=== PATIENT | male | born 1965 | race African-American/Black ===

== ENCOUNTER 2017-09-03 09:48 | Inpatient (IN) | payer OTHER ==
[~2017-09-03] VITALS: Ht 167.6 cm; Wt 70.3 kg
--- NOTE | 2017-09-03 09:58 | NUR ---
AAOX3, BIB [employer] IN CUSTODY FOR OTB C/O R 2ND TOE PAIN X 1 MONTH, +GANGRENE. RR IS EVEN AND UNLABORED WITH NAD NOTED. SKIN IS WARM AND DRY. CMS WNL. DR BROWNING AT BS FOR EVAL.
--- NOTE | 2017-09-03 10:06 | NUR ---
XRAY IN PROGRESS AT BS
[2017-09-03 10:39] LABS: CALCIUM, SERUM 8.5 mg/dL (8.5-10.1); CREATININE 0.9 mg/dL (0.6-1.3)
[2017-09-03 10:59] LABS: HEMATOCRIT 24 % (39-51); HEMOGLOBIN 7.6 g/dL (13.5-17.5); MEAN CORPUSCULAR VOLUME 71 fL (80-96); RED BLOOD CELL COUNT(AUTO) 3.38 MIL/uL (4.5-6.0); WHITE BLOOD COUNT (AUTO) 10.3 K/uL (4.3-11.0)
[2017-09-03 11:00] LABS: BASOPHILS % (AUTO) 0.4 % (0.0-2.0); EOSINOPHILS % (AUTO) 0.2 % (0.0-6.0); MEAN CORPUSCULAR HEMOGLOBIN 22 PG (26.0-33.0); MEAN CORPUSCULAR HGB CONC 32 g/dl (31.0-36.0); MONOCYTES % (AUTO) 9.1 % (2.0-12.0); NEUTROPHILS % (AUTO) 66.3 % (43.0-81.0); PLATELET COUNT (AUTO) 504 /CMM (150-450); RDW COEFFICIENT OF VARIATION 19.6 (11.5-15.0)
--- NOTE | 2017-09-03 11:16 | NUR ---
REPORT GIVEN TO NICKY YE FOR LEAH MS [facility]
--- NOTE | 2017-09-03 11:27 | NUR ---
PAGED [facility].
[2017-09-03] MEDS ORDERED: PIPERACILLIN /TAZOBACTAM 3.375 G in IV D5W 50 ML IV ONE (11:30)
[2017-09-03] MEDS ORDERED: POTASSIUM CHLORIDE 20 MEQ TAB.PRT.SR PO ONE ×2 (11:30→11:37)
[2017-09-03] MEDS ORDERED: VANCOMYCIN 1 GM in IV D5W 250 ML IV ONE (11:30)
--- NOTE | 2017-09-03 12:52 | NUR ---
RN MS INITIAL NOTES RECEIVED REPORT AND PT FROM ER VIA NELLY, PT RESTING IN BED NO ACUTE DISTRESS OR SOB, STATED NO PAIN AT THIS TIME, WOUND PICTURES TAKEN AND PLACED IN CHART, ID PLACED, ON RA SAT ABOVE 97%, RT AC 20G IV NO INFILTRATION NOTED, ADMISSION PACKET COMPLETED. A&O X4 GERMAN SPEAKING, NOT IN POLICE CUSTODY AT THIS TIME, ALL SAFETY MEASURES INITIATED, BP 151/105, HR 74, TEMP 97.6, O2 99% PAIN 0/10, RESP 18 WILL CONTINUE TO MONITOR.
[2017-09-03 13:22] LABS: LYMPHOCYTES % (MANUAL) 24 % (16-48); MONOCYTES % (MANUAL) 3 % (0-11.0); NEUTROPHILS % (MANUAL) 73 (42-76)
[2017-09-03] MEDS ORDERED: ZOLPIDEM TARTRATE 5 MG TABLET PO PRN (13:30)
[2017-09-03] MEDS ORDERED: Z GUARD REMEDY 2 OZ OINT TP PRN (13:30)
[2017-09-03] MEDS ORDERED: MAGNESIUM HYDROXIDE 30 ML UDC PO PRN (13:30)
[2017-09-03] MEDS ORDERED: ACETAMINOPHEN 325 MG TABLET PO PRN (13:30)
[2017-09-03] MEDS ORDERED: ONDANSETRON HCL/PF 4 MG/2 ML VIAL IVP PRN (13:30)
[2017-09-03] MEDS ORDERED: FEE PK DOSING 1 MIN EA MC ONE (13:36)
[2017-09-03] MEDS: ENOXAPARIN SODIUM 40 MG/0.4 ML DISP.SYRIN SQ SCH (15:20)
[2017-09-03 16:00] VITALS: BP 156/90
[2017-09-03] MEDS: PIPERACILLIN /TAZOBACTAM 3.375 G in IV D5W 50 ML IV SCH (17:13)
[2017-09-03 17:26] LABS: IRON, SERUM 31 ug/dl (50-175); TOTAL IRON BINDING CAPACITY 243 ug/dl (250-450)
--- NOTE | 2017-09-03 18:39 | NUR ---
RN MS ENDING NOTES PT RESTING IN BED WITH NO ACUTE CHANGES NOTED. ALL NEEDS MET, ALL DUE MEDS GIVEN, PTS WOUND IS COVERED WITH KERLIX AND KEPT CLEAN UNTIL WOUND CONSULT, IV SITE INTACT AND PATENT, NO ACUTE CHANGES NOTED, WILL ENDORSE TO PM NURSE.
--- NOTE | 2017-09-03 19:20 | NUR ---
RN MS INITIAL NOTES, PATIENT IN BED AWAKE ALERT AND ORIENTED, ABLE TO COMMUNICATE NEEDS AND CONCERNS, BREATHING EVEN AND UNLABORED, NO ACUTE DISTRESS/SOB NOTES AT THIS TIME, IV SITE IN RIGHT AC PATENT AND INTACT, ALL NEEDS MET, WOUND IS COVERED WITH KERLIX AND KEPT CLEAN UNTIL WOUND CONSULT, WILL CONTINUE TO MONITOR CLOSELY.
[2017-09-03 20:00] VITALS: BP 124/56
[2017-09-03] MEDS: VANCOMYCIN 1 GM in IV D5W 250 ML IV SCH (20:34)
[2017-09-04] MEDS ORDERED: PIPERACILLIN /TAZOBACTAM 3.375 G VIAL IV ONE ×2 (00:09→04:53)
[2017-09-04] MEDS: PIPERACILLIN /TAZOBACTAM 3.375 G in IV D5W 50 ML IV SCH ×5 (00:11→23:42)
[2017-09-04] MEDS ORDERED: VANCOMYCIN 1 GM VIAL ONE (04:35)
[2017-09-04] MEDS: VANCOMYCIN 1 GM in IV D5W 250 ML IV SCH ×3 (04:52→20:20)
[2017-09-04] MEDS: HYDROCODONE/APAP 5/325MG 1 EACH TABLET PO PRN (05:05)
[2017-09-04 05:49] VITALS: BP 137/80
[2017-09-04 06:25] LABS: BASOPHILS % (AUTO) 0.1 % (0.0-2.0); EOSINOPHILS % (AUTO) 1.1 % (0.0-6.0); HEMATOCRIT 27 % (39-51); HEMOGLOBIN 8.7 g/dL (13.5-17.5); LYMPHOCYTES % (AUTO) 33.8 % (20.0-44.0); MEAN CORPUSCULAR HEMOGLOBIN 23 PG (26.0-33.0); MEAN CORPUSCULAR HGB CONC 33 g/dl (31.0-36.0); MEAN CORPUSCULAR VOLUME 71 fL (80-96); MONOCYTES # (AUTO) 0.8 /CMM (0.1-1.30); MONOCYTES % (AUTO) 9.1 % (2.0-12.0); NEUTROPHILS % (AUTO) 55.9 % (43.0-81.0); PLATELET COUNT (AUTO) 565 /CMM (150-450); RED BLOOD CELL COUNT(AUTO) 3.76 MIL/uL (4.5-6.0); WHITE BLOOD COUNT (AUTO) 8.9 K/uL (4.3-11.0)
[2017-09-04 06:43] LABS: CALCIUM, SERUM 7.9 mg/dL (8.5-10.1); CREATININE 0.9 mg/dL (0.6-1.3); MAGNESIUM 1.6 mg/dL (1.8-2.4); PHOSPHORUS 3.1 mg/dL (2.5-4.9); POTASSIUM 3.9 mmol/L (3.5-5.1)
--- NOTE | 2017-09-04 06:53 | NUR ---
RN MS CLOSING NOTES, PATIENT IN BED SLEEPING AT THIS TIME, BREATHING EVEN AND UNLABORED, NO ACUTE DISTRESS/SOB NOTES AT THIS TIME, IV SITE IN RIGHT AC PATENT AND INTACT, ALL NEEDS MET, WOUND IS COVERED WITH KERLIX, NO SIGNIFICANT CHANGE OF CONDITION THROUGHOUT THE NIGHT, WILL ENDORSE CONTINUITY OF CARE TO ONCOMING NURSE.
--- NOTE | 2017-09-04 07:30 | NUR ---
TELECOM ANALYST INITIAL NOTES RECEIVED PATIENT SLEEPING IN BED, EASY TO AROUSE, AOX3, NO SIGNS OF DISTRESS ON ROOM AIR, IV R AC 20G, CLEAN AND PATENT, SL, PATIENT HAS RIGHT TOE GANGRENE, ABLE TO AMBULATE, BED IN LOW AND LOCKED POSITION, CALL LIGHT WITHIN REACH, WILL CONTINUE TO MONITOR.
[2017-09-04 08:00] VITALS: BP 139/73
[2017-09-04] MEDS: ENOXAPARIN SODIUM 40 MG/0.4 ML DISP.SYRIN SQ SCH (08:33)
--- NOTE | 2017-09-04 09:37 | NUR ---
WOUND CARE CONSULT: PT PRESENTS WITH VERY FOUL ODOR TO RT 2ND TOE NECROTIC WOUND. BED WORKER HERE TO SEE PT. DEFER TO DPM FOR WOUND TREATMENT PLAN. PT IS INDEPENDENT WITH BED MOBILITY AND IS CONTINENT. WILL SEE PRN. CURRENT ROBE SCORE IS 23.
[2017-09-04 10:48] LABS: BAND % (MANUAL) 3 % (0.0-5.0); EOSINOPHILS % (MANUAL) 1 % (0-4); LYMPHOCYTES % (MANUAL) 25 % (16-48); MONOCYTES % (MANUAL) 2 % (0-11.0); NEUTROPHILS % (MANUAL) 69 (42-76)
[2017-09-04] MEDS: Magnesium 1GM/D5W 100ML PREMIX 100 ML IV SCH ×2 (11:37→12:23)
--- NOTE | 2017-09-04 14:20 | NUR ---
Social service consult requested by MEIR Hinson for homelessness. Pt. is a 52 year old male who was admitted to [facility] for osteomyelitis. SW met with pt. bedside along with rehabilitation case coordinator Neelima Davison. Pt. is alert and oriented x 4. Pt. is very pleasant and cooperative with SW during the assessment. Pt. states he is homeless and has been homeless for the past eight months. Pt. usually stays on the streets near [employer] and [employer]. Pt. states he is from [place] and moved to [place] eight months ago. Pt. 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 Pt. arrived to [facility] in police custody due to possession of crystal methamphetamine. Pt. last used methamphetamines two days ago. Pt. states he started using methamphetamines four months ago. Pt. denies drinking alcohol. Pt. does use marijuana. Pt. smokes approximately 8 cigarettes per day. Pt. is willing to take referrals to homeless jail placements, food resources and homeless resources prior to discharge. No other social service needs are requested at this time. SW to follow up with pt. regarding referrals at time of discharge.
[2017-09-04 16:00] VITALS: BP 117/48
[2017-09-04 16:04] VITALS: BP 117/48
--- NOTE | 2017-09-04 18:37 | NUR ---
CORNER TRIMMER OPERATOR END NOTES PATIENT RESTING IN BED, NO SIGNS OF DISTRESS, ALL NEEDS ATTENDED TO, CONSENT SIGNED FOR PROCEDURE TOMORROW, NPO AT MIDNIGHT, WILL ENDORSE TO TETRYL WRINGER OPERATOR FOR CONTINUITY OF CARE.
--- NOTE | 2017-09-04 22:55 | NUR ---
RN MS INITIAL NOTES, PATIENT IN BED,SLEEPING AT THIS TIME, BUT EASILY AROUSABLE, , BREATHING EVEN AND UNLABORED, NO ACUTE DISTRESS/SOB NOTES AT THIS TIME, IV SITE IN RIGHT AC PATENT AND INTACT, PATIENT WILL HAVE PROCEDURE FOR AMPUTATION OF THE TOE WITH GANGRENE IN THE MORNING, WILL BE NPO AFTER MIDNIGHT, EXPLAIN PROCEDURE TO PATIENT AND THE NECESSITY TO BE NPO AFTER MIDNIGHT, VERBALIZED UNDERSTANDING, , WILL CONTINUE TO MONITOR CLOSELY.
[2017-09-05] MEDS: VANCOMYCIN 1 GM in IV D5W 250 ML IV SCH ×3 (03:38→20:46)
[2017-09-05 04:00] VITALS: BP 148/76
[2017-09-05] MEDS: PIPERACILLIN /TAZOBACTAM 3.375 G in IV D5W 50 ML IV SCH ×3 (05:05→18:23)
[2017-09-05 06:25] LABS: MAGNESIUM 1.9 mg/dL (1.8-2.4)
--- NOTE | 2017-09-05 06:33 | NUR ---
RN MS CLOSING NOTES, PATIENT IN BED,SLEEPING AT THIS TIME, BUT EASILY AROUSABLE, BREATHING EVEN AND UNLABORED, NO ACUTE DISTRESS/SOB NOTES AT THIS TIME, NO C/O PAIN OR DISCOMFORT AT THIS TIME, IV SITE IN RIGHT AC PATENT AND INTACT, PATIENT WILL HAVE PROCEDURE FOR AMPUTATION OF THE TOE WITH GANGRENE THIS MORNING, IS BEING NPO SINCE MIDNIGHT, NO SIGNIFICANT CHANGE IN CONDITION AT THIS TIME, BED LOCKED AND IN LOWEST POSITION, ALL NEEDS PROVIDED AND MEDS ADMINISTERED ORDERED, WILL ENDORSE CONTINUITY OF CARE TO ONCOMING NURSE. +
[2017-09-05 06:55] LABS: BASOPHILS % (AUTO) 0.6 % (0.0-2.0); EOSINOPHILS % (AUTO) 1.5 % (0.0-6.0); HEMATOCRIT 29 % (39-51); HEMOGLOBIN 9.1 g/dL (13.5-17.5); LYMPHOCYTES # (AUTO) 2.9 /CMM (0.8-4.8); LYMPHOCYTES % (AUTO) 36.8 % (20.0-44.0); MEAN CORPUSCULAR HEMOGLOBIN 23 PG (26.0-33.0); MEAN CORPUSCULAR HGB CONC 32 g/dl (31.0-36.0); MEAN CORPUSCULAR VOLUME 72 fL (80-96); MONOCYTES # (AUTO) 0.8 /CMM (0.1-1.30); MONOCYTES % (AUTO) 10.3 % (2.0-12.0); NEUTROPHILS # (AUTO) 4.1 /CMM (1.8-8.9); NEUTROPHILS % (AUTO) 50.8 % (43.0-81.0); PLATELET COUNT (AUTO) 576 /CMM (150-450); RED BLOOD CELL COUNT(AUTO) 4.01 MIL/uL (4.5-6.0); WHITE BLOOD COUNT (AUTO) 7.9 K/uL (4.3-11.0)
[2017-09-05 08:00] VITALS: BP 144/87
[2017-09-05 08:06] LABS: INR 0.95 (0.87-1.13)
[2017-09-05] MEDS: ENOXAPARIN SODIUM 40 MG/0.4 ML DISP.SYRIN SQ SCH (08:53)
[2017-09-05] MEDS ORDERED: FENTANYL PF 100MCG/2ML AMPUL ONE (12:06)
[2017-09-05] MEDS ORDERED: MIDAZOLAM HCL 2 MG/2ML VIAL ONE (12:06)
[2017-09-05] MEDS ORDERED: BUPIVACAINE 0.5 % PF 150 MG/30 ML VIAL IJ ONE (12:10)
[2017-09-05 16:00] VITALS: BP 119/72
--- NOTE | 2017-09-05 19:30 | NUR ---
RN MS INITIAL NOTES, PATIENT IN BED,ALERT AND ORIENTED ABLE TO COMMUNICATE CONCERNS AND NEEDS, BREATHING EVEN AND UNLABORED, NO ACUTE DISTRESS/SOB NOTES AT THIS TIME, IV SITE IN RIGHT AC PATENT AND INTACT, S/P RIGHT 2ND TOE AMPUTATION TODAY, BACK TO REGULAR DIET, ALL NEEDS PROVIDED AND WILL ADMINISTER ORDERED, BED LOCKED AND IN LOWEST POSITION, CALL LIGHT W/I REACH, WILL CONTINUE TO MONITOR CLOSELY.
[2017-09-05] MEDS: HYDROCODONE/APAP 5/325MG 1 EACH TABLET PO PRN (19:38)
[2017-09-05 20:00] VITALS: BP 147/82
[2017-09-06] MEDS: PIPERACILLIN /TAZOBACTAM 3.375 G in IV D5W 50 ML IV SCH ×3 (00:35→12:30)
[2017-09-06 04:00] VITALS: BP 172/74
[2017-09-06] MEDS: VANCOMYCIN 1 GM in IV D5W 250 ML IV SCH ×2 (04:17→13:00)
[2017-09-06] MEDS: HYDROCODONE/APAP 5/325MG 1 EACH TABLET PO PRN (04:57)
--- NOTE | 2017-09-06 06:24 | NUR ---
RN MS CLOSING NOTES, PATIENT IN BED SLEEPING AT THIS TIME, BREATHING EVEN AND UNLABORED, NO ACUTE DISTRESS/SOB NOTES AT THIS TIME, MEDICATION FOR PAIN ADMINISTERED EARLIER PER PATIENT REQUEST, IV SITE IN LEFT FA 22G PATENT AND INTACT, S/P RIGHT 2ND TOE AMPUTATION TODAY, ALL NEEDS PROVIDED AND WILL ADMINISTER ORDERED WELL TREATMENTS, BED LOCKED AND IN LOWEST POSITION, CALL LIGHT W/I REACH, WILL ENDORSE CONTINUITY OF CARE TOP ONCOMING NURSE.
[2017-09-06 07:12] LABS: CALCIUM, SERUM 7.9 mg/dL (8.5-10.1); POTASSIUM 4.3 mmol/L (3.5-5.1)
[2017-09-06 07:20] LABS: CREATININE 0.9 mg/dL (0.6-1.3)
[2017-09-06 08:00] VITALS: BP 153/81
[2017-09-06] MEDS: ENOXAPARIN SODIUM 40 MG/0.4 ML DISP.SYRIN SQ SCH (09:16)
[2017-09-06 12:00] VITALS: BP 133/66
--- NOTE | 2017-09-06 13:03 | NUR ---
per enedina from pharmacy, hold vanco due to trough of 21 verbal readback done
--- NOTE | 2017-09-06 15:30 | NUR ---
PATIENT DISCHARGE NOTES: PATIENT DISCHARGED HOME PER JANE BENNETT NP. NONLABORED BREATHING NOTED ON ROOM AIR. DENYING PAIN. DRESSING ON RIGHT FOOT DONE TODAY BY DR GONZALES, PATIENT REFUSED TO HAVE WOUND PICTURE TAKEN. BENEFITS AND RISKS EXPLAINED. IV LINE REMOVED PRIOR TO DISCHARGE. PATIENT GIVEN ANTIBIOTICS PRESCRIPTIONS. MEDICATION DISCUSSED WITH PATIENT WELL JANE BENNETT NP INSTRUCTIONS. 50$ GIVEN TO PATIENT PER JANE BENNETT FLORICULTURE TEACHER FOR THE PURCHASE OF ANTIBIOTICS. GIVEN TO PATIENT BY MYSELF AND WITNESSED BY GENO TOMLINSON. PATIENT GIVEN WOUND CLINIC SETUP AND JAIL INFORMATION BY CHARITO FROM [address] CONTACTED CASE MANAGEMENT REGARDING NOTIFYING [employer] REGARDING DISCHARGE. PER CASE MANAGEMENT, [employer] TO NOT BE NOTIFIED. VERBAL READBACK DONE PATIENT REQUESTED TO GO HOME TO THE INTERSECTION OF [facility] AND [facility] IN [place]. CAB VOUCHER OBTAIN FROM SUPERVISORS OFFICE. PATIENT EDUCATED ON WOUND CARE, TANNA BEARING TOLERATED PER ORDERS--PATIENT VERBALIZED UNDERSTANDING PATIENT ATE LUNCH PRIOR TO DISCHARGE. OFFERED SNACKS PATIENT AMBULATING STEADY- OFFERED A WALKER IF HE WOULD LIKE. PATIENT REFUSED PATIENT LEFT VIA TAXI, ACCOMPANIED TO TAXI DOOR BY STAFF MEMBER
--- NOTE | 2017-09-06 15:30 | NUR ---
ALL BELONGINGS WITH PATIENT
[2017-09-06] MEDS ORDERED: VANCOMYCIN 0.75 GM in IV D5W 250 ML IV SCH (21:00)
== END 2017-09-06 15:40 | disposition home or self-care (01) | DRG 504 ==
LOC: ER 09:49 → MEDSG1 11:11
PROVIDERS: ADMIT Nurse Practitioner Acute Care; ATTEND Nurse Practitioner Acute Care
PROC: 0Y6R0Z0 Detachment at Right 2nd Toe, Complete, Open Approach (ICD-10-PCS; principal; 2017-09-05 12:00)
DX: M86.9 Osteomyelitis, unspecified (principal); I96 Gangrene, not elsewhere classified; E87.6 Hypokalemia; D47.3 Essential (hemorrhagic) thrombocythemia; D50.9 Iron deficiency anemia, unspecified; Z59.0 Homelessness; F19.10 Other psychoactive substance abuse, uncomplicated; F10.10 Alcohol abuse, uncomplicated
CPT/HCPCS: 36415; 73630-TC; 73660-TC; 80048-TC; 80061-TC; 80202-TC; 83540-TC; 83735-TC; 84100-TC; 85025-TC; 85610-TC; 85652-TC; 85730-TC; 86140-TC; 86850-TC; 87070-TC; 87075-TC; 87081-TC; 87186-TC; A4606; A6402; A6407; J1650; J2250; J2543; J3010; J3370; J3475; J3490; J7060; Z7610